=== PATIENT | male | born 1965 | race Caucasian/White ===

== ENCOUNTER 2023-04-20 21:55 | Emergency (ER) | payer BC, SELFPAY ==
[2023-04-20 21:57] VITALS: BP 116/79; PULSE 84; RESP 19; TEMP 36.9; O2SAT 96; BMI 25.0
--- NOTE | 2023-04-20 22:33 | PC.NURSE ---
Dr. Huston at
--- NOTE | 2023-04-20 22:37 | XR_ITS ---
PROCEDURE INFORMATION: Exam: XR Left Tibia and Fibula Exam date and time: 04/20/2023 10:41 PM Age: 57 years old Clinical indication: Injury or trauma; Fall; Additional info: Pain, swelling recent trauma TECHNIQUE: Imaging protocol: Radiologic exam of the left tibia and fibula. Views: 2 views. COMPARISON: CR XR KNEE LT 3V 04/20/2023 10:40 PM FINDINGS: Bones/joints: Normal. Soft tissues: Normal. IMPRESSION: No acute findings. Recommend correlation with history/physical exam and consider follow-up radiographs in 7-10 days.
--- NOTE | 2023-04-20 22:39 | XR_ITS ---
PROCEDURE INFORMATION: Exam: XR Left Knee Exam date and time: 04/20/2023 10:40 PM Age: 57 years old Clinical indication: Injury or trauma; Fall; Additional info: Pain, fall TECHNIQUE: Imaging protocol: Radiologic exam of the left knee. Views: 3 views. COMPARISON: No relevant prior studies available. FINDINGS: Bones/joints: No acute fracture. Suggestion of small osteochondral medial femoral condyle. No suprapatellar effusion. Anatomic alignment is maintained. Soft tissues: Soft tissues are unremarkable. Other findings: Normal mineralization. IMPRESSION: 1. No acute fracture. Recommend correlation with history/physical exam and consider follow-up radiographs in 7-10 days. 2. Other findings as above.
[2023-04-21 00:42] VITALS: BP 123/72; PULSE 81; RESP 16; TEMP 36.9; O2SAT 97
--- NOTE | 2023-04-21 16:11 | [facility].EDGENADL ---
Discharge Plan Disposition Patient Disposition: Home, Self-Care Condition: Good Referrals Follow up/Referrals: Provider,Referral, [Primary Care Provider] - See instructions Activity Restrictions/Add. Instructions Additional Instructions/Restrictions: Please follow-up with your primary care provider. Please return to the emergency department if you develop any new or worsening symptoms or become concerned for your health. Clinical Impressions Clinical Impression: Hematoma, Acute knee pain, Left leg pain Discharge ED Provider: Jarrell Huston Adult HPI General Chief complaint: Extremity Injury, Lower Stated complaint: AO07/16 LT knee pain Time Seen by Provider: 04/20/23 22:30 Mode of Arrival: Ambulatory Source of Information: Patient Limitations: No Limitations Description of Symptoms (Recalled from ER Triage Doc. by RN): 57 M presents with 1 week of bilateral knee pain after tripping and falling onto his knees while working. Patient reports more pain to his left knee than his right. His left knee has prominent ecchymosis and erythema circumferential. Patient is concerned for infection History of Present Illness HPI narrative: Patient fell and scraped his legs on some scaffolding several days ago. He was initially doing well but now he is having some worsening bruising that is extending up and down the leg. Patient reports pain in the medial aspect of the left upper leg as well as development of a swelling just inferior medial to the left knee. Patient reports no pain with range of motion of the knee, reports no difficulty with walking. Patient reports that he had an abrasion but no laceration at the time of the injury. Reports no history of bleeding or bruising problems in the past. No history of blood clots in the past. Related Data Allergies Allergy/AdvReac Type Severity Reaction Status Date / Time No Known Allergies Allergy Verified 04/21/23 00:14 [facility] Disclaimer: The information contained in this section may have been updated after the patient was seen, as this information can be updated by other users. Social History Smoking Status: Never smoker alcohol intake: never current occupational status: other Travel in the last 8 weeks: None ROS Obtained: Yes All systems reviewed & no additional complaints except as documented Physical Exam General General appearance: alert and in no apparent distress Head Head exam: atraumatic, normocephalic and normal inspection Eye Eye exam: Present normal appearance, PERRL and EOMI ENT ENT exam: Present normal exam, normal oropharynx, mucous membranes moist and normal external ear exam Neck Neck exam: Present normal inspection, full ROM and trachea midline Chest Chest inspection: Present normal inspection and symmetric chest wall rise Respiratory Respiratory exam: Present normal lung sounds bilaterally; Absent respiratory distress Cardiovascular Cardiovascular exam: Present regular rate and normal rhythm Abdominal Exam Abdominal exam: Present soft and normal bowel sounds; Absent distention, tenderness or guarding Extremities Exam Extremities exam: Present other (Left lower extremity: Focal swelling inferior medial to the right knee, minimal overlying erythema, no induration, warmth. Mild tenderness over the medial left thigh and nodule at the inguinal canal. Scattered bruising and discoloration throughout the left thigh, calf, ankle. No bony tenderness t) Back Exam Back exam: Present normal inspection; Absent tenderness Neurological Exam Neurological exam: Present alert and oriented X3 Psychiatric Psychiatric exam: Present normal affect and normal mood Skin Skin exam: Present warm, dry, intact and normal color Lymphatic Lymphatic Findings: no adenopathy Medical Decision Making Medical Records Medical records reviewed: Yes I reviewed the patient's medical records. Nicko Inquiry Pt receiving controlled substance: No Nicko was queried
== END 2023-04-20 23:45 | disposition home or self-care (01) ==
PROVIDERS: Emergency Provider Emergency Medicine
DX: S70.12XA Contusion of left thigh, initial encounter (principal); S80.12XA Contusion of left lower leg, initial encounter; S90.02XA Contusion of left ankle, initial encounter; W19.XXXA Unspecified fall, initial encounter
CPT/HCPCS: 73562; 73590; 99284